=== PATIENT | female | born 1935 | race Caucasian/White ===

== ENCOUNTER 2018-06-29 14:25 | Inpatient (IN) | payer MEDICARE ==
[~2018-06-29] VITALS: Ht 170.2 cm; Wt 80.4 kg
[2018-06-29 15:16] LABS: HEMOGLOBIN 13.8 g/dl (12.0-16.0); IMMATURE GRANULOCYTES 0.7 % (0.0-5.0); MEAN CELL VOLUME 90.1 fL CALC (80.0-100.0); MEAN CORPUSCULAR HGB 31.1 pG CALC (26.0-32.0); MEAN CORPUSCULAR HGB CONC 34.5 g/L CALC (32.0-36.0); NEUT# 9.65 thou/uL (2.00-7.15); RED BLOOD COUNT 4.44 mill/uL (4.20-5.60); RED CELL DISTRI WIDTH 11.8 % (11.5-15.5)
[2018-06-29] MEDS ORDERED: METFORMIN850 MG PO (15:31)
[2018-06-29] MEDS ORDERED: FENOFIBRATE48 MG PO (15:32)
[2018-06-29] MEDS ORDERED: COUMADIN6 MG PO (15:32)
[2018-06-29] MEDS ORDERED: LANTUS100 UNIT/M (15:32)
[2018-06-29] MEDS ORDERED: TENORMIN PO (15:33)
[2018-06-29 15:42] LABS: ALBUMIN 4.3 g/dL (3.2-5.0); BILIRUBIN, TOTAL 0.8 mg/dL (0.0-1.4); CREATININE 1.4 mg/dL (0.5-1.0); TOTAL PROTEIN 7.7 g/dL (6.3-8.2)
[2018-06-29 15:57] LABS: PROTHROMBIN TIME 10.7 SECONDS (9.0-12.5)
[2018-06-29 15:59] LABS: POTASSIUM 5.5 mmol/l (3.5-5.1)
[2018-06-29 17:46] LABS: URINE BILIRUBIN - DIPSTICK NEGATIVE (NEGATIVE); URINE BLOOD DIPSTICK TRACE-LYSED (NEGATIVE); URINE COLOR YELLOW; URINE GLUCOSE - DIPSTICK >=1000 mg/dL (NEGATIVE); URINE KETONE TRACE mg/dL (NEGATIVE); URINE LEUK ESTERASE NEGATIVE (NEGATIVE); URINE NITRITE - DIPSTICK NEGATIVE (Negative); URINE PH 5.5 (4.5-8.0); URINE PROTEIN - DIPSTICK NEGATIVE (NEG-TRACE); URINE SPECIFIC GRAVITY <=1.005; URINE UROBILINOGEN - DIPSTICK 0.2 E.U./dL (0.2)
[2018-06-29 18:14] VITALS: BP 149/58
[2018-06-29 19:00] VITALS: BP 135/70
[2018-06-29 20:00] VITALS: BP 114/59
[2018-06-29 20:56] LABS: CREATININE 1.2 mg/dL (0.5-1.0)
[2018-06-29 21:00] VITALS: BP 131/77
[2018-06-29 21:04] LABS: POTASSIUM 4.2 mmol/l (3.5-5.1)
[2018-06-29 21:54] LABS: HEMATOCRIT 37.1 % (37.0-47.0); HEMOGLOBIN 13.2 g/dl (12.0-16.0); IMMATURE GRANULOCYTES 0.6 % (0.0-5.0); MEAN CELL VOLUME 87.5 fL CALC (80.0-100.0); MEAN CORPUSCULAR HGB 31.1 pG CALC (26.0-32.0); MEAN CORPUSCULAR HGB CONC 35.6 g/L CALC (32.0-36.0); NEUT# 8.88 thou/uL (2.00-7.15); RED BLOOD COUNT 4.24 mill/uL (4.20-5.60); RED CELL DISTRI WIDTH 11.7 % (11.5-15.5)
[2018-06-29 22:00] VITALS: BP 119/49
[2018-06-29 22:20] LABS: BILIRUBIN, TOTAL 0.5 mg/dL (0.0-1.4); MAGNESIUM 1.7 mg/dL (1.6-2.3)
[2018-06-29 23:00] VITALS: BP 106/61
[2018-06-30] VITALS (20 sets, daily range): BP systolic 91–155; BP diastolic 43–97
[2018-06-30 00:46] LABS: ANION GAP 12 (6-22 (CALC)); BUN 36 mg/dL (8-23); BUN/CREATININE RATIO 36 (12-20 (CALC)); CARBON DIOXIDE 23 mmol/l (22-30); CHLORIDE 107 mmol/l (95-108); GFR 53 ML/MIN (>=60 (CALC)); GFR FOR AFR.AMER. > 60 ML/MIN (>=60 (CALC)); POTASSIUM 3.7 mmol/l (3.5-5.1); SODIUM 138 mmol/l (137-146)
[2018-06-30 04:46] LABS: ANION GAP 11 (6-22 (CALC)); BUN 33 mg/dL (8-23); BUN/CREATININE RATIO 35 (12-20 (CALC)); CARBON DIOXIDE 21 mmol/l (22-30); CHLORIDE 108 mmol/l (95-108); CREATININE 0.9 mg/dL (0.5-1.0); GFR 60 ML/MIN (>=60 (CALC)); GFR FOR AFR.AMER. > 60 ML/MIN (>=60 (CALC)); POTASSIUM 3.7 mmol/l (3.5-5.1); SODIUM 137 mmol/l (137-146)
[2018-06-30 09:06] LABS: CREATININE 1.1 mg/dL (0.5-1.0)
[2018-06-30 13:23] LABS: ANION GAP 13 (6-22 (CALC)); BUN 26 mg/dL (8-23); BUN/CREATININE RATIO 29 (12-20 (CALC)); CARBON DIOXIDE 20 mmol/l (22-30); CHLORIDE 109 mmol/l (95-108); CREATININE 0.9 mg/dL (0.5-1.0); GFR 60 ML/MIN (>=60 (CALC)); GFR FOR AFR.AMER. > 60 ML/MIN (>=60 (CALC)); POTASSIUM 4.6 mmol/l (3.5-5.1); SODIUM 137 mmol/l (137-146)
[2018-07-01] VITALS (11 sets, daily range): BP systolic 99–168; BP diastolic 55–88
[2018-07-01 05:32] LABS: HEMATOCRIT 35.4 % (37.0-47.0); HEMOGLOBIN 12.4 g/dl (12.0-16.0); IMMATURE GRANULOCYTES 1.2 % (0.0-5.0); MEAN CELL VOLUME 89.8 fL CALC (80.0-100.0); MEAN CORPUSCULAR HGB 31.5 pG CALC (26.0-32.0); NEUT# 7.51 thou/uL (2.00-7.15); RED BLOOD COUNT 3.94 mill/uL (4.20-5.60); RED CELL DISTRI WIDTH 11.9 % (11.5-15.5)
[2018-07-01 05:55] LABS: BILIRUBIN, TOTAL 0.9 mg/dL (0.0-1.4); CREATININE 1.1 mg/dL (0.5-1.0); MAGNESIUM 1.4 mg/dL (1.6-2.3); POTASSIUM 4.1 mmol/l (3.5-5.1)
[2018-07-01 05:56] LABS: TOTAL PROTEIN 5.9 g/dL (6.3-8.2)
[2018-07-01 11:28] LABS: BARBITURATES NEGATIVE (NEGATIVE); COCAINE NEGATIVE (NEGATIVE); METHADONE NEGATIVE (NEGATIVE); OXCYCODONE NEGATIVE (NEGATIVE); TETRAHYDROCANNABIONOL NEGATIVE (NEGATIVE); TRICYLIC ANTIDEPRESSANTS NEGATIVE (NEGATIVE)
[2018-07-02 05:44] LABS: INTERNATIONAL NORMALIZED RATIO 1.1 RATIO (0.7-1.3); PROTHROMBIN TIME 11.3 SECONDS (9.0-12.5)
[2018-07-02 10:16] VITALS: BP 144/66
[2018-07-02 11:10] LABS: HEMATOCRIT 34.4 % (37.0-47.0); HEMOGLOBIN 11.8 g/dl (12.0-16.0); IMMATURE GRANULOCYTES 0.6 % (0.0-5.0); MEAN CELL VOLUME 89.8 fL CALC (80.0-100.0); MEAN CORPUSCULAR HGB 30.8 pG CALC (26.0-32.0); MEAN CORPUSCULAR HGB CONC 34.3 g/L CALC (32.0-36.0); NEUT# 4.51 thou/uL (2.00-7.15); RED BLOOD COUNT 3.83 mill/uL (4.20-5.60); RED CELL DISTRI WIDTH 12.1 % (11.5-15.5)
[2018-07-02 11:26] LABS: ALBUMIN 2.7 g/dL (3.2-5.0); ALKALINE PHOSPHATASE 50 u/l (38-126); ANION GAP 12 (6-22 (CALC)); BILIRUBIN, TOTAL 0.8 mg/dL (0.0-1.4); BUN 15 mg/dL (8-23); BUN/CREATININE RATIO 15 (12-20 (CALC)); CARBON DIOXIDE 22 mmol/l (22-30); CHLORIDE 107 mmol/l (95-108); GFR 53 ML/MIN (>=60 (CALC)); GFR FOR AFR.AMER. > 60 ML/MIN (>=60 (CALC)); MAGNESIUM 1.5 mg/dL (1.6-2.3); POTASSIUM 3.6 mmol/l (3.5-5.1); SGOT/AST 34 u/l (9-36); SODIUM 138 mmol/l (137-146); TOTAL PROTEIN 5.6 g/dL (6.3-8.2)
[2018-07-02 15:14] VITALS: BP 144/66
[2018-07-02 18:23] VITALS: BP 137/64
[2018-07-02 19:10] VITALS: BP 123/51
[2018-07-03 04:20] VITALS: BP 156/59
[2018-07-03 05:36] LABS: HEMATOCRIT 34.4 % (37.0-47.0); HEMOGLOBIN 11.8 g/dl (12.0-16.0); IMMATURE GRANULOCYTES 0.5 % (0.0-5.0); MEAN CELL VOLUME 90.3 fL CALC (80.0-100.0); MEAN CORPUSCULAR HGB CONC 34.3 g/L CALC (32.0-36.0); NEUT# 5.16 thou/uL (2.00-7.15); RED BLOOD COUNT 3.81 mill/uL (4.20-5.60); RED CELL DISTRI WIDTH 11.9 % (11.5-15.5)
[2018-07-03 06:01] LABS: ALBUMIN 2.7 g/dL (3.2-5.0); ALKALINE PHOSPHATASE 51 u/l (38-126); AMYLASE < 30 u/l (30-110); ANION GAP 12 (6-22 (CALC)); BILIRUBIN, TOTAL 0.5 mg/dL (0.0-1.4); BUN 14 mg/dL (8-23); BUN/CREATININE RATIO 13 (12-20 (CALC)); CARBON DIOXIDE 23 mmol/l (22-30); CHLORIDE 104 mmol/l (95-108); CREATININE 1.1 mg/dL (0.5-1.0); GFR 48 ML/MIN (>=60 (CALC)); GFR FOR AFR.AMER. 58 ML/MIN (>=60 (CALC)); LIPASE 81 u/l (23-300); MAGNESIUM 1.4 mg/dL (1.6-2.3); POTASSIUM 3.6 mmol/l (3.5-5.1); SGOT/AST 37 u/l (9-36); SODIUM 135 mmol/l (137-146); TOTAL PROTEIN 5.5 g/dL (6.3-8.2)
[2018-07-03 07:30] VITALS: BP 101/62
[2018-07-03 11:24] VITALS: BP 123/50
[2018-07-03] MEDS ORDERED: CARVEDILOL3.125 MG PO (12:34)
[2018-07-03] MEDS ORDERED: PANTOPRAZOLE SO40 M1 PO (12:34)
[2018-07-03] MEDS ORDERED: LEVEMIR100 UNIT/M SC (12:35)
[2018-07-03 16:19] VITALS: BP 147/52
[2018-07-03 19:30] VITALS: BP 158/56
[2018-07-03 23:47] VITALS: BP 106/44
[2018-07-04 03:58] VITALS: BP 127/48
[2018-07-04 05:43] LABS: INTERNATIONAL NORMALIZED RATIO 1.3 RATIO (0.7-1.3); PROTHROMBIN TIME 13.4 SECONDS (9.0-12.5)
[2018-07-04 07:20] VITALS: BP 145/58
[2018-07-04 11:21] VITALS: BP 142/49
[2018-07-04 15:20] VITALS: BP 146/75
[2018-07-04 20:01] VITALS: BP 149/67
[2018-07-05 05:31] LABS: HEMATOCRIT 33.7 % (37.0-47.0); HEMOGLOBIN 11.3 g/dl (12.0-16.0); IMMATURE GRANULOCYTES 0.7 % (0.0-5.0); MEAN CELL VOLUME 92.6 fL CALC (80.0-100.0); MEAN CORPUSCULAR HGB CONC 33.5 g/L CALC (32.0-36.0); NEUT# 4.08 thou/uL (2.00-7.15); RED BLOOD COUNT 3.64 mill/uL (4.20-5.60)
[2018-07-05 05:37] VITALS: BP 140/67
[2018-07-05 05:43] LABS: INTERNATIONAL NORMALIZED RATIO 1.5 RATIO (0.7-1.3); PROTHROMBIN TIME 15.7 SECONDS (9.0-12.5)
[2018-07-05 05:50] LABS: ALBUMIN 2.9 g/dL (3.2-5.0); ALKALINE PHOSPHATASE 55 u/l (38-126); ANION GAP 11 (6-22 (CALC)); BILIRUBIN, TOTAL 0.2 mg/dL (0.0-1.4); BUN 15 mg/dL (8-23); BUN/CREATININE RATIO 15 (12-20 (CALC)); CARBON DIOXIDE 24 mmol/l (22-30); CHLORIDE 105 mmol/l (95-108); GFR 53 ML/MIN (>=60 (CALC)); GFR FOR AFR.AMER. > 60 ML/MIN (>=60 (CALC)); MAGNESIUM 1.5 mg/dL (1.6-2.3); POTASSIUM 4.1 mmol/l (3.5-5.1); SGOT/AST 28 u/l (9-36); SODIUM 137 mmol/l (137-146); TOTAL PROTEIN 5.9 g/dL (6.3-8.2)
[2018-07-05 07:48] VITALS: BP 138/63
[2018-07-05 15:08] VITALS: BP 144/57
[2018-07-05 19:34] VITALS: BP 156/64
[2018-07-06 04:50] VITALS: BP 107/57
[2018-07-06 08:58] VITALS: BP 125/44
[2018-07-06 09:48] LABS: INTERNATIONAL NORMALIZED RATIO 1.7 RATIO (0.7-1.3); PROTHROMBIN TIME 17.4 SECONDS (9.0-12.5)
[2018-07-06 15:44] VITALS: BP 125/68
[2018-07-06 19:00] VITALS: BP 164/65
[2018-07-07 04:55] VITALS: BP 118/60
[2018-07-07 06:13] LABS: INTERNATIONAL NORMALIZED RATIO 1.9 RATIO (0.7-1.3); PROTHROMBIN TIME 20.1 SECONDS (9.0-12.5)
[2018-07-07 07:15] VITALS: BP 151/77
[2018-07-07 10:35] VITALS: BP 152/72
[2018-07-07 15:30] VITALS: BP 159/50
[2018-07-07 19:15] VITALS: BP 119/59
[2018-07-08 04:30] VITALS: BP 128/66
[2018-07-08 05:12] LABS: HEMATOCRIT 31.8 % (37.0-47.0); HEMOGLOBIN 10.6 g/dl (12.0-16.0)
[2018-07-08 05:26] LABS: INTERNATIONAL NORMALIZED RATIO 1.7 RATIO (0.7-1.3); PROTHROMBIN TIME 17.2 SECONDS (9.0-12.5)
[2018-07-08 09:07] VITALS: BP 115/53
[2018-07-08] MEDS ORDERED: COREG6.25 MG PO (12:13)
[2018-07-08] MEDS ORDERED: FENOFIBRATE48 MG PO (12:13)
[2018-07-08] MEDS ORDERED: PROTONIX40 M2 PO (12:14)
[2018-07-08] MEDS ORDERED: LANTUS100 UNIT/M SC (12:16)
[2018-07-08 15:35] VITALS: BP 163/66
== END 2018-07-08 17:04 | disposition home health service (06) | DRG 638 ==
LOC: ED 14:25 → ED-I 15:23 → ED 16:10 → ICU 16:11 → MS2 07-04 15:15
PROVIDERS: Family Medicine; Nurse Practitioner Family; ADMIT Internal Medicine; ATTEND Internal Medicine Nephrology
DX: E11.65 Type 2 diabetes mellitus with hyperglycemia (principal); R45.851 Suicidal ideations; F32.3 Major depressive disorder, single episode, severe with psychotic features; I82.511 Chronic embolism and thrombosis of right femoral vein; I10 Essential (primary) hypertension; E78.5 Hyperlipidemia, unspecified; F41.9 Anxiety disorder, unspecified; E03.9 Hypothyroidism, unspecified; T38.3X6A Underdosing of insulin and oral hypoglycemic [antidiabetic] drugs, initial encounter; T46.5X6A Underdosing of other antihypertensive drugs, initial encounter; T46.6X6A Underdosing of antihyperlipidemic and antiarteriosclerotic drugs, initial encounter; T45.516A Underdosing of anticoagulants, initial encounter; D72.823 Leukemoid reaction; R04.0 Epistaxis; Z91.128 Patient's intentional underdosing of medication regimen for other reason; Z95.828 Presence of other vascular implants and grafts; Z79.4 Long term (current) use of insulin; Z79.01 Long term (current) use of anticoagulants
CPT/HCPCS: J1650; J2060; J3475; S0166

== ENCOUNTER 2018-07-13 15:06 | Emergency (ER) | payer MEDICARE ==
[~2018-07-13] VITALS: Ht 170.2 cm; Wt 82.3 kg
[~2018-07-13 15:06] MED LIST: CARVEDILOL3.125 MG PO; COREG6.25 MG PO; COUMADIN6 MG PO; FENOFIBRATE48 MG PO; LANTUS100 UNIT/M; LANTUS100 UNIT/M SC; LEVEMIR100 UNIT/M SC; METFORMIN850 MG PO; PANTOPRAZOLE SO40 M1 PO; PROTONIX40 M2 PO; TENORMIN PO
[2018-07-13 15:55] VITALS: BP 146/78
== END 2018-07-13 15:55 | disposition home or self-care (01) ==
LOC: ED 15:06
DX: E11.9 Type 2 diabetes mellitus without complications (principal); F17.210 Nicotine dependence, cigarettes, uncomplicated; Z79.4 Long term (current) use of insulin; Z86.718 Personal history of other venous thrombosis and embolism

== ENCOUNTER 2018-08-01 17:55 | Emergency (ER) | payer MEDICARE ==
[~2018-08-01] VITALS: Ht 170.2 cm; Wt 76.3 kg
[2018-08-01 19:01] LABS: HEMATOCRIT 27.9 % (37.0-47.0); HEMOGLOBIN 9.2 g/dl (12.0-16.0); IMMATURE GRANULOCYTES 0.4 % (0.0-5.0); MEAN CORPUSCULAR HGB 30.7 pG CALC (26.0-32.0); NEUT# 4.85 thou/uL (2.00-7.15); RED CELL DISTRI WIDTH 12.9 % (11.5-15.5)
[2018-08-01 19:17] LABS: ALBUMIN 3.8 g/dL (3.2-5.0); BILIRUBIN, TOTAL 0.4 mg/dL (0.0-1.4); CREATININE 1.4 mg/dL (0.5-1.0); POTASSIUM 4.5 mmol/l (3.5-5.1); TOTAL PROTEIN 6.6 g/dL (6.3-8.2)
[2018-08-01 19:22] LABS: ACT PARTIAL THROMBO TIME 41.8 SECONDS (20.0-32.5); INTERNATIONAL NORMALIZED RATIO 4.3 RATIO (0.7-1.3); PROTHROMBIN TIME 44.7 SECONDS (9.0-12.5)
[2018-08-01] MEDS ORDERED: AUGMENTIN875TAB PO (20:51)
[2018-08-01 21:00] VITALS: BP 161/55
== END 2018-08-01 21:00 | disposition home or self-care (01) ==
LOC: ED 17:55
PROC: 2Y41X5Z Packing of Nasal Region using Packing Material (ICD-10-PCS; principal; 2018-08-01)
DX: R04.0 Epistaxis (principal); E11.9 Type 2 diabetes mellitus without complications; F17.200 Nicotine dependence, unspecified, uncomplicated; Z86.718 Personal history of other venous thrombosis and embolism

== ENCOUNTER → 2018-08-15 | Outpatient (REF) | payer MEDICARE ==
[~2018-08-15] MED LIST changes: +AUGMENTIN875TAB PO; +COUMADIN5 MG PO; +ESCITALOPRAM OX10 MG PO; +PANTOPRAZOLE SO40 MG PO; +TRICOR48 MG PO
[2018-08-15 10:53] LABS: PROTHROMBIN TIME 23.4 SECONDS (9.0-12.5)
[2018-08-15 10:54] LABS: INTERNATIONAL NORMALIZED RATIO 2.3 RATIO (0.7-1.3)
== END | disposition home or self-care (01) ==
LOC: LABSPEC 09:42
PROVIDERS: ATTEND Internal Medicine
DX: I50.9 Heart failure, unspecified (principal)

== ENCOUNTER 2018-08-19 13:37 | Emergency (ER) | payer MEDICARE ==
[~2018-08-19] VITALS: Ht 170.2 cm; Wt 75.0 kg
[~2018-08-19 13:37] MED LIST changes: -COUMADIN5 MG PO; -ESCITALOPRAM OX10 MG PO; -PANTOPRAZOLE SO40 MG PO; -TRICOR48 MG PO
[2018-08-19 14:08] LABS: HEMATOCRIT 30.3 % (37.0-47.0); HEMOGLOBIN 9.7 g/dl (12.0-16.0); IMMATURE GRANULOCYTES 0.7 % (0.0-5.0); MEAN CELL VOLUME 93.5 fL CALC (80.0-100.0); MEAN CORPUSCULAR HGB 29.9 pG CALC (26.0-32.0); NEUT# 6.21 thou/uL (2.00-7.15); RED BLOOD COUNT 3.24 mill/uL (4.20-5.60); RED CELL DISTRI WIDTH 12.9 % (11.5-15.5)
[2018-08-19 14:24] LABS: ALBUMIN 4.4 g/dL (3.2-5.0); ALKALINE PHOSPHATASE 32 u/l (38-126); ANION GAP 17 (6-22 (CALC)); BILIRUBIN, TOTAL 0.9 mg/dL (0.0-1.4); BUN 27 mg/dL (8-23); BUN/CREATININE RATIO 17 (12-20 (CALC)); CARBON DIOXIDE 21 mmol/l (22-30); CHLORIDE 106 mmol/l (95-108); CREATININE 1.5 mg/dL (0.5-1.0); GFR 33 ML/MIN (>=60 (CALC)); GFR FOR AFR.AMER. 40 ML/MIN (>=60 (CALC)); POTASSIUM 4.5 mmol/l (3.5-5.1); SGOT/AST 35 u/l (9-36); SODIUM 139 mmol/l (137-146); TOTAL PROTEIN 7.8 g/dL (6.3-8.2)
[2018-08-19 15:40] LABS: ACT PARTIAL THROMBO TIME 20.9 SECONDS (20.0-32.5)
[2018-08-19 15:41] LABS: INTERNATIONAL NORMALIZED RATIO 1.1 RATIO (0.7-1.3); PROTHROMBIN TIME 11.9 SECONDS (9.0-12.5)
[2018-08-19] MEDS ORDERED: COUMADIN5 MG PO (16:01)
[2018-08-19] MEDS ORDERED: ESCITALOPRAM OX10 MG PO (16:01)
[2018-08-19] MEDS ORDERED: PANTOPRAZOLE SO40 MG PO (16:02)
[2018-08-19] MEDS ORDERED: TRICOR48 MG PO (16:02)
[2018-08-19 16:21] VITALS: BP 172/65
== END 2018-08-19 16:21 ==
LOC: ED 13:37
PROVIDERS: Emergency Medicine
DX: S72.002A Fracture of unspecified part of neck of left femur, initial encounter for closed fracture (principal); W07.XXXA Fall from chair, initial encounter; Y92.009 Unspecified place in unspecified non-institutional (private) residence as the place of occurrence of the external cause; Z86.718 Personal history of other venous thrombosis and embolism; E11.9 Type 2 diabetes mellitus without complications; Z79.84 Long term (current) use of oral hypoglycemic drugs

== ENCOUNTER 2018-09-27 17:01 | Emergency (ER) | payer MEDICARE ==
[~2018-09-27] VITALS: Ht 170.2 cm; Wt 79.5 kg
[~2018-09-27 17:01] MED LIST changes: +COUMADIN5 MG PO; +ESCITALOPRAM OX10 MG PO; +PANTOPRAZOLE SO40 MG PO; +TRICOR48 MG PO
[2018-09-27 17:59] LABS: HEMATOCRIT 35.5 % (37.0-47.0); HEMOGLOBIN 11.5 g/dl (12.0-16.0)
[2018-09-27 18:35] VITALS: BP 144/64
== END 2018-09-27 19:15 ==
LOC: ED 17:01
PROVIDERS: Family Medicine
DX: R04.0 Epistaxis (principal); E11.9 Type 2 diabetes mellitus without complications; Z86.718 Personal history of other venous thrombosis and embolism; Z79.01 Long term (current) use of anticoagulants

== ENCOUNTER 2018-10-05 01:41 | Inpatient (IN) | payer MEDICARE ==
[~2018-10-05] VITALS: Ht 167.6 cm; Wt 72.6 kg
--- NOTE | 2018-10-05 01:44 | NUR ---
PATIENT TO ROOM 9 VIA EMS STRETCHER. TRIAGE COMPLETED AT BEDSIDE. PATIENT HAS NO ROTATION OR SHORTENING OF LEFT LEG. GOOD CMS. STATES SHE WAS WALKING WITHOUT HER WALKER, USING A HANDRAIL AND FELL.
[2018-10-05] MEDS ORDERED: AMIODARONE200 MG PO (01:50)
[2018-10-05] MEDS ORDERED: AMLODIPINE5 MG PO (01:51)
[2018-10-05] MEDS ORDERED: LEVEMIR FL100 UNIT/M SC (01:53)
[2018-10-05] MEDS ORDERED: WARFARIN2.5 MG PO (01:56)
[2018-10-05] MEDS ORDERED: CARVEDILOL6.25 MG PO (01:57)
[2018-10-05] MEDS ORDERED: KEFLEX500 MG PO (02:00)
[2018-10-05] MEDS ORDERED: DOCUSATE SOD100 M2 PO (02:01)
[2018-10-05] MEDS ORDERED: PERCOCET 10/31 COMBO PO (02:03)
--- NOTE | 2018-10-05 02:06 | NUR ---
XRAYS DONE AT BEDSIDE. PT'S DAUGHTER AT BEDSIDE.,
--- NOTE | 2018-10-05 03:10 | NUR ---
IV SITE TO LEFT WRIST, BLOOD DRAWN. FUENTES CATHETER INSERTED. PT TOLERATED WITH MINIMAL DISCOMFORT.
[2018-10-05 03:27] LABS: URINE BILIRUBIN - DIPSTICK NEGATIVE (NEGATIVE); URINE BLOOD DIPSTICK NEGATIVE (NEGATIVE); URINE COLOR YELLOW; URINE GLUCOSE - DIPSTICK NEGATIVE (NEGATIVE); URINE KETONE NEGATIVE (NEGATIVE); URINE NITRITE - DIPSTICK NEGATIVE (Negative); URINE PH 7.5 (4.5-8.0); URINE PROTEIN - DIPSTICK TRACE mg/dL (NEG-TRACE); URINE SPECIFIC GRAVITY 1.015; URINE UROBILINOGEN - DIPSTICK 0.2 E.U./dL (0.2)
[2018-10-05 03:28] LABS: URINE LEUK ESTERASE SMALL (NEGATIVE)
[2018-10-05 03:34] LABS: HEMATOCRIT 29.6 % (37.0-47.0); MEAN CORPUSCULAR HGB 28.6 pG CALC (26.0-32.0); MEAN CORPUSCULAR HGB CONC 31.8 g/L CALC (32.0-36.0); NEUT# 5.04 thou/uL (2.00-7.15); RED BLOOD COUNT 3.29 mill/uL (4.20-5.60); RED CELL DISTRI WIDTH 16.8 % (11.5-15.5)
[2018-10-05 03:38] LABS: HEMOGLOBIN 9.4 g/dl (12.0-16.0)
[2018-10-05 03:39] LABS: ALBUMIN 3.7 g/dL (3.2-5.0); BILIRUBIN, TOTAL 0.3 mg/dL (0.0-1.4); CREATININE 1.1 mg/dL (0.5-1.0); POTASSIUM 4.5 mmol/l (3.5-5.1); TOTAL PROTEIN 6.6 g/dL (6.3-8.2)
[2018-10-05 03:40] LABS: URINE BACTERIA RARE hpf; URINE RBC 0-2 RBC/hpf (0-5); URINE WBC 20-50 WBC/hpf (0-5)
[2018-10-05 03:46] LABS: ACT PARTIAL THROMBO TIME 32.8 SECONDS (20.0-32.5); INTERNATIONAL NORMALIZED RATIO 2.3 RATIO (0.7-1.3)
--- NOTE | 2018-10-05 03:47 | NUR ---
Admission Note Report Given to: ASHLEY Transported by: Wheelchair X Stretcher Transported with: X Nurse Transporter X Patent IV O2 Corporate Auditor FUENTES CATH INPLACE.
--- NOTE | 2018-10-05 03:53 | NUR ---
PT ARRIVES TO THE FLOOR VIA STRETCHER WITH ER STAFF. PT IS TRANSFERED FROM STRETCHER TO BED x4 STAFF. PT IS A&0 x3. ASSESMENT COMPLETED AT THIS TIME. TRACE EDEMA NOTED TO LEFT LEG, LEIA STILL IN PLACE FROM PREVIOUS SURGERY. PEDAL PULSES WEAK. IV INFUSING WELL. NO PAIN AND NO NEEDS AT THIS TIME. CALL MEDEIROS IN REACH. WILL CONTINUE TO MONITOR
[2018-10-05 03:55] VITALS: BP 130/52
--- NOTE | 2018-10-05 06:55 | NUR ---
REPORT RECEIVED FROM WOLFGANG RAMIREZ; PT LAYING IN BED AWAKE, APPEARS CONFUSE, PULLING ON FUENTES; PT REDIRECT; BED ALARM ACTIVE; CALL MEDEIROS IN REACH. WILL CONTINUE TO MONITOR.
[2018-10-05 07:23] VITALS: BP 133/57
--- NOTE | 2018-10-05 07:47 | NUR ---
ASSESSMENT COMPLETED; RESTING IN BED WITH EYES OPEN; A/OX2; #20 LW, LR INFUSHING @ 100CC/HR, SITE APPEARS HEALTHY; LT HIP SURGERY, 22 LEIA NOTED; INCISION CLEAN, NO DRAINAGE NOTED; DENIES ANY PAIN; FUENTES PATENT DRAINING CLEAR, YELLOW URINE TO GRAVITY; CALL MEDEIROS IN REACH; SAFETY PRECAUTION REINFORCE; WILL CONTINUE TO MONITOR.
--- NOTE | 2018-10-05 10:55 | NUR ---
SAKINA WITH CONTRACTING MANAGER FOR [employer] TO FAX POA TO [phone]
--- NOTE | 2018-10-05 11:22 | NUR ---
PT APPEARS TO BE SLEEPING WITH BOTH EYES CLOSED; RESP EVEN AND UNLABORED ON ROOM AIR; REMIANS NPO; IVF LR INFUSING @100CC/HR, SITE APPEARS HEALTHY; BED ALARM ACTIVE; CALL MEDEIROS IN REACH;.
--- NOTE | 2018-10-05 12:09 | NUR ---
PT SLEEPING RESP EVEN AND UNLABORED; FUENTES PATENT,DRAINING TO GRAVITY; NO S/S OF DISTRESS NOTED; CALL MEDEIROS IN REACH; BED ALARM ACTIVE.
--- NOTE | 2018-10-05 13:35 | NUR ---
PT LAYING IN BED, RESP EVEN AND UNLABORED ON ROOM AIR; NO S/S OF DISTRESS NOTED; MULTIPLE VISITORS PRESENT IN ROOM, PT CHATTY AND REMAIN CONFUSED AT TIMES; ALFREDO PATENT TO GRAVITY; CALL MEDEIROS IN REACH. WILL CONTINUE TO MONITOR.
--- NOTE | 2018-10-05 15:48 | NUR ---
PT LAYING IN BED, CONTINUES TO BE IN & OUT OF CONFUSION; RESP EVEN AND UNLABORED ON ROOM AIR; MEDICATED PER EMAR, TOLERATED PILLS WITHOUT INCIDENT; LT LATERAL HIP LEIA REMOVED (35) TOTAL; NO DRAINAGE OR REDNESS NOTED TO INCISION, WARM TO TOUCH; PERCY CARE PROVIDED; READJUST PT IN BED; IVF INFUSING WELL; BED ALARM; CALL MEDEIROS IN REACH;
[2018-10-05 16:00] VITALS: BP 153/58
--- NOTE | 2018-10-05 17:17 | NUR ---
PT SITTING UP IN BED APPEARS TO BE SLEEPING; NO S/S OF DISTRESS NOTED; CALL MEDEIROS IN REACH; BED ALARM ACTIVE; WILL CONTINUE TO MONITOR.
--- NOTE | 2018-10-05 19:31 | NUR ---
RECEIVED REPORT FROM NURSE MCKINNEY, PATIENT APPEARS TO BE SLEEPING EYES CLOSED, EVEN UNLABORED BREATHING NO DISCOMFORTS NOTED AT THIS TIME, BED ALARM IN PLACE.
[2018-10-05 20:10] VITALS: BP 151/59
--- NOTE | 2018-10-05 21:00 | NUR ---
PATIENT ALERT AND ORIENTED TO SELF ONLY, CURRENTLY RESING IN BED, WITH AND ONGOING IV OF LR@100CC/HR INFUSING WELL ON LEFT WRIST G 20, WITH INDWELLING FUENTES CATHETER FR14 DRAING YELLOW CLEAR URINE, NOTED TO HAVE LEFT HIP INCISION NO DRAINAGE AND LEAVE OPEN TO AIR ORDERED, BED ALARM IN PLACE.
[2018-10-05 21:16] VITALS: BP 150/90
--- NOTE | 2018-10-06 00:16 | NUR ---
PATIENT APPEARS TO BE SLEEPING WITH EYES CLOSED WITH EVEN UNLABORED BREATHING CALL LIGHT IN PLACE.
--- NOTE | 2018-10-06 03:53 | NUR ---
PATIENT STARTED TO HAVE NOSE BLEEDING, WITYH BLOOD CLOTS, APPLIED PRESSURE AND COLD PACK TO NOSE AND ORDERED PT INR AND CBC.
--- NOTE | 2018-10-06 03:54 | NUR ---
PATIENT NOT COOPERATING AT THIS TIME, CLENCHING HAND UNABLE TO COLLECT BLOOD, C/O PAIN OM LEFT HIP, PRN P[ERCOCET GIVEN AT THIS TIME.
--- NOTE | 2018-10-06 03:55 | NUR ---
NASAL PACKING STILL ON LEFT NARE, ABLE TO STOP BLEEDING AT THIS TIME.WILL CONTINUE TO MONITOR.
[2018-10-06 04:06] VITALS: BP 142/66
[2018-10-06 05:33] LABS: HEMATOCRIT 26.8 % (37.0-47.0); HEMOGLOBIN 8.5 g/dl (12.0-16.0); IMMATURE GRANULOCYTES 0.3 % (0.0-5.0); MEAN CELL VOLUME 90.2 fL CALC (80.0-100.0); MEAN CORPUSCULAR HGB 28.6 pG CALC (26.0-32.0); MEAN CORPUSCULAR HGB CONC 31.7 g/L CALC (32.0-36.0); NEUT# 6.13 thou/uL (2.00-7.15); RED BLOOD COUNT 2.97 mill/uL (4.20-5.60); RED CELL DISTRI WIDTH 16.4 % (11.5-15.5)
[2018-10-06 05:56] LABS: INTERNATIONAL NORMALIZED RATIO 2.4 RATIO (0.7-1.3); PROTHROMBIN TIME 25.3 SECONDS (9.0-12.5)
--- NOTE | 2018-10-06 06:42 | NUR ---
NASAL PACKIN REMOVED, BLEEDING STOPPED, WILL CONTINUE TO MONITOR.
--- NOTE | 2018-10-06 08:05 | NUR ---
CALL RECEIVED FROM DR FREEMAN OFFICE, SPOKE WITH FRANKO FRIAS, STATES "DR FREEMAN WANTS PT TRF TO [facility], DR ROLA DONATO, SURGERY 10/08/18; TEL # FOR [facility] [phone]; MATTHEW'S OFFICE # [phone]; INFO GIVEN TO JONEL GARCIA.
[2018-10-06 08:44] VITALS: BP 142/54
--- NOTE | 2018-10-06 08:55 | NUR ---
ASSESSMENT COMPLETED; PT IN & OUT OF SLEEP; WHEN AWAKE SEEMS CONFUSE; RESP EVEN AND UNLABORED ON ROOM AIR; #20G LW, LR INFUSING @100CC/HR, SITE APPEARS HEALTHY; INCISIONS TO LT HIP CDI, OPEN TO AIR; FUENTES DRAINING TO GRAVITY CLEAR, YELLOW URINE; BED ALARM ACTIVE; CALL MEDEIROS IN REACH; NO S/S OF DISTRESS NOTED; WILL CONTINUE TO MONITOR.
--- NOTE | 2018-10-06 09:50 | NUR ---
PT RESPOSITION IN BED, BACK RUB GIVEN; AM MEDS ADMINISTER, HELD COREG AT THIS TIME, BP 142/54, HR 62; PERCOCET GIVEN PAIN /10; NO S/S OF DISTRESS NOTED; WILL CONTINUE TO MONITOR.
[2018-10-06 10:45] VITALS: BP 148/56
--- NOTE | 2018-10-06 12:08 | NUR ---
PT SEEMS TO BE SLEEPING WITH EYES CLOSED; RESP EVEN AND UNLABORED; FUENTES DRAINING TO GRAVITY CLEAR, YELLOW URINE; IVF INFUSING WITHOUT DIFFICULTY; SITE APPEARS HEALTHY; SPOKE WITH RONI YENNY (DAUGHTER) OF PT WITH UPDATE. YURIY'S TEL # [phone]
--- NOTE | 2018-10-06 12:57 | NUR ---
ASSISTED PT TO UP RIGHT POSITION IN BED; ASSIST WITH LUNCH, ATE A FEW BITES, TOLERATED WELL; SAID "THAT'S ENOUGH FOR NOW" CALL MEDEIROS IN REACH, BED ALARM ACTIVE
--- NOTE | 2018-10-06 15:50 | NUR ---
PT APPEARS TO BE SLEEPING, IN AND OUT OF CONFUSION AT TIMES WHEN AWAKE; RESP EVEN AND UNLABORED; IVF INFUSING WITHOUT DIFFICULTY; SITE APPEARS HEALTHY; FUENTES DRAINING TO GRAVITY CLEAR, YELLOW URINE; CALL MEDEIROS IN REACH; BED ALARM ACTIVE; WILL CONTINUE TO MONITOR.
[2018-10-06 15:59] VITALS: BP 137/61
--- NOTE | 2018-10-06 19:00 | NUR ---
REPORT RECIEVED FROM WOLFGANG MCKINNEY. PT RESTING IN BED. NO SIGNS OR SYMPTMS OF DISTRESS. BED ALARM ACTIVE FOR PT SAFETY. WILL CONTINUE TO MONITOR.
[2018-10-06 19:42] VITALS: BP 145/70
--- NOTE | 2018-10-06 21:35 | NUR ---
PT RESTING IN BED, ALERT TO SELF. RESPIRATIONS EVEN AND UNLABORED ON RA, LUNGS SOUND CLEAR. FUENTES DRAINING TO GRAVITY, CLEAR YELLOW URINE. IV # 20 LW WITH LR INFUSING @ 100 ML/HR. PT DENIES ANY PAIN AT THIS TIME. BED ALARM ACTIVE FOR PT SAFETY. WILL CONTINUE TO MONITOR.
[2018-10-06 21:42] VITALS: BP 115/91
--- NOTE | 2018-10-06 22:10 | NUR ---
PT BEING TRANSFERED TO [facility], VIA STRETCHER ACCOMPANIED BY [facility]. PT BELONGING SENT WITH PT. REPORT CALLED TO BALA KAUR AT [facility].
--- NOTE | 2018-10-06 22:10 | NUR ---
TRANSFERRED TO [facility] VIA [facility]. DEPARTED UNIT IN STABLE CONDITION WITH ALL BELONGINGS.
== END 2018-10-06 20:20 | disposition short-term general hospital (02) | DRG 536 ==
LOC: ED 01:41 → ED-I 01:52 → ED 03:29 → MS2 03:30
PROVIDERS: Family Medicine; ADMIT Internal Medicine; ATTEND Internal Medicine
PROC: 0T9B70Z Drainage of Bladder with Drainage Device, Via Natural or Artificial Opening (ICD-10-PCS; principal; 2018-10-05)
DX: S79.002A Unspecified physeal fracture of upper end of left femur, initial encounter for closed fracture (principal); M97.02XA Periprosthetic fracture around internal prosthetic left hip joint, initial encounter; I82.509 Chronic embolism and thrombosis of unspecified deep veins of unspecified lower extremity; F32.3 Major depressive disorder, single episode, severe with psychotic features; I12.9 Hypertensive chronic kidney disease with stage 1 through stage 4 chronic kidney disease, or unspecified chronic kidney disease; E11.22 Type 2 diabetes mellitus with diabetic chronic kidney disease; N18.3 Chronic kidney disease, stage 3 (moderate); E78.5 Hyperlipidemia, unspecified; W18.30XA Fall on same level, unspecified, initial encounter; Y92.198 Other place in other specified residential institution as the place of occurrence of the external cause; Z96.642 Presence of left artificial hip joint; Z95.828 Presence of other vascular implants and grafts; Z79.01 Long term (current) use of anticoagulants
CPT/HCPCS: G0378